=== PATIENT | female | born 1980 | race Caucasian/White ===

== ENCOUNTER 2022-04-21 13:48 | Inpatient (IN) | payer OTHER ==
[~2022-04-21] VITALS: Ht 167.6 cm; Wt 70.3 kg
[~2022-04-21 13:48] MED LIST: HUMALOG 10100 UNITS/ SC; LANTUS INS100 UTS/M1 SC; NOVOLIN 70100 UNIT/1 SQ; PERCOCET 5/325 T1 EA PO
[2022-04-21 16:12] LABS: RED BLOOD COUNT 4.7 M/UL (4.00-5.10); WHITE BLOOD COUNT 24.1 K/UL (4.5-11.0)
[2022-04-21 16:38] LABS: BUN/CREATININE RATIO 22 (0-10)
[2022-04-21 18:20] LABS: BUN/CREATININE RATIO 27 (0-10)
[2022-04-21] MEDS ORDERED: NOVOLIN 70100 UNIT/2 SQ (18:58)
[2022-04-21 23:24] LABS: BUN/CREATININE RATIO 30 (0-10)
[2022-04-22 04:31] LABS: WHITE BLOOD COUNT 20.2 K/UL (4.5-11.0)
[2022-04-22 04:49] LABS: BUN/CREATININE RATIO 31 (0-10)
[2022-04-22 05:18] LABS: HEMOGLOBIN 11.5 gm/dl (12.3-15.3); RED BLOOD COUNT 3.89 M/UL (4.00-5.10)
[2022-04-22 22:10] LABS: BUN/CREATININE RATIO 24 (0-10)
[2022-04-23 05:56] LABS: HEMOGLOBIN 10.9 gm/dl (12.3-15.3); RED BLOOD COUNT 3.72 M/UL (4.00-5.10); WHITE BLOOD COUNT 19.5 K/UL (4.5-11.0)
[2022-04-23 06:16] LABS: BUN/CREATININE RATIO 22 (0-10)
[2022-04-24 05:11] LABS: WHITE BLOOD COUNT 15.3 K/UL (4.5-11.0)
[2022-04-24 05:17] LABS: RED BLOOD COUNT 4.22 M/UL (4.00-5.10)
[2022-04-24 06:42] LABS: BUN/CREATININE RATIO 12 (0-10)
[2022-04-25 05:00] LABS: HEMOGLOBIN 10.9 gm/dl (12.3-15.3)
[2022-04-25 05:06] LABS: BUN/CREATININE RATIO 14 (0-10)
[2022-04-25 05:16] LABS: RED BLOOD COUNT 3.76 M/UL (4.00-5.10); WHITE BLOOD COUNT 9.8 K/UL (4.5-11.0)
[2022-04-26 05:13] LABS: HEMOGLOBIN 11.9 gm/dl (12.3-15.3); RED BLOOD COUNT 4.12 M/UL (4.00-5.10); WHITE BLOOD COUNT 9.2 K/UL (4.5-11.0)
[2022-04-26 05:32] LABS: BUN/CREATININE RATIO 13 (0-10)
[2022-04-27 05:44] LABS: HEMOGLOBIN 12.2 gm/dl (12.3-15.3); RED BLOOD COUNT 4.23 M/UL (4.00-5.10); WHITE BLOOD COUNT 11.4 K/UL (4.5-11.0)
[2022-04-27 06:11] LABS: BUN/CREATININE RATIO 33 (0-10)
[2022-04-29 07:25] LABS: HEMOGLOBIN 11.9 gm/dl (12.3-15.3); RED BLOOD COUNT 4.2 M/UL (4.00-5.10); WHITE BLOOD COUNT 10.9 K/UL (4.5-11.0)
[2022-04-29 08:24] LABS: BUN/CREATININE RATIO 24 (0-10)
[2022-04-29] MEDS ORDERED: NOVOLIN 70100 UNIT/2 SQ ×2 (10:55→10:57)
[2022-04-29] MEDS ORDERED: DOXYCYCLINE HY100 MG PO (10:55)
[2022-04-29] MEDS ORDERED: CEFADROXIL500 MG PO (10:55)
[2022-04-29] MEDS ORDERED: METFORMIN HCL1000 MG PO (10:57)
[2022-04-29] MEDS ORDERED: TRAMADOL HCL50 MG PO (11:07)
[2022-04-29] MEDS ORDERED: METRONIDAZOLE500 MG PO (11:12)
== END 2022-04-29 12:29 | disposition home or self-care (01) | DRG 853 ==
LOC: ER1 13:48 → MED SURG 4 17:08 → CDU 17:08 → PROG CARE 17:08 → MED SURG 4 04-25 03:57
PROVIDERS: Emergency Medicine; Internal Medicine; Internal Medicine Nephrology; Physician Assistant Medical; Surgery; ADMIT Internal Medicine
PROC: 0J990ZZ Drainage of Buttock Subcutaneous Tissue and Fascia, Open Approach (ICD-10-PCS; 2022-04-21)
PROC: 0JB90ZZ Excision of Buttock Subcutaneous Tissue and Fascia, Open Approach (ICD-10-PCS; principal; 2022-04-21 19:23)
DX: A41.89 Other specified sepsis (principal); M72.6 Necrotizing fasciitis; E87.2 Acidosis; E87.1 Hypo-osmolality and hyponatremia; L02.214 Cutaneous abscess of groin; B96.89 Other specified bacterial agents as the cause of diseases classified elsewhere; E11.9 Type 2 diabetes mellitus without complications; F32.A Depression, unspecified; E86.0 Dehydration; F41.9 Anxiety disorder, unspecified; F17.200 Nicotine dependence, unspecified, uncomplicated; Z98.51 Tubal ligation status; Z98.890 Other specified postprocedural states; Z90.49 Acquired absence of other specified parts of digestive tract; Z85.038 Personal history of other malignant neoplasm of large intestine; Z83.3 Family history of diabetes mellitus
CPT/HCPCS: 36415; 80048; 80053; 80202; 81001; 82550; 82607; 82803; 82947; 82962; 83036; 83540; 83550; 83605; 83735; 83880; 84100; 85025; 85027; 85652; 86140; 87040; 87070; 87077; 87086; 87186; 87205; 96365; 96375; 96376; 99284; J1170; J1650; J2001; J2185; J2250; J2405; J2543; J2704; J3010; J3370; J3475; J7030; J7070; Q9967